=== PATIENT | female | born 2000 | race Caucasian/White ===

== ENCOUNTER 2025-08-05 09:41 | Emergency (ER) | payer OTHER ==
[2025-08-05 10:44] LABS: Glucose, Urine (Dipstick) Normal (Negative); Leukocyte 100 (Negative); Protein, Urine (Dipstick) 15 mg/dl (Neg-Trace); Specific Gravity, Urine 1.025 (1.005-1.030)
[2025-08-05 10:49] LABS: #Basophils 0.05 10x3/uL (0.0-0.2); #Eosinophils 0.08 10x3/uL (0.0-0.5); #Monocytes 0.43 10x3/uL (0.0-1.1); #Neutrophils 5.13 10x3/uL (1.5-8.4); %Basophils 0.7 % (0.0-2.0); %Eosinophils 1.0 % (0.0-6.0); %Lymphocytes 25.4 % (18.0-47.0); %Monocytes 5.6 % (0.0-10.0); %Neutrophils 66.9 % (40.0-75.0); Hematocrit 41.3 % (34.9-44.5); Hemoglobin 13.8 g/dL (12.0-15.5); Mean Corpuscular Hemoglobin 28.2 pg (27.0-33.0); Mean Corpuscular Volume 84.5 fL (81.6-98.3); Platelet Count 243 10x3/uL (150-450); Red Blood Cell (RBC) Count 4.89 10x6/uL (3.90-5.03); White Blood Cell (WBC) Count 7.67 10x3/uL (3.5-10.5)
[2025-08-05 10:57] LABS: CAUTI Indications for Culture Pelvic or flank pain
[2025-08-05 10:58] LABS: Bacteria/HPF 4+ HPF (None Seen); Urine Culture Reflex No No
[2025-08-05 11:08] LABS: ALT (SGPT) 14 U/L (Less than 34); AST (SGOT) 22 U/L (11-34); Albumin 4.5 g/dL (3.1-4.5); Alkaline Phosphatase 36 U/L (40-110); Anion Gap 12 mmol/L (10-20); BUN (Urea Nitrogen) 13 mg/dL (7.0-18.7); Bilirubin, Total 0.6 mg/dL (0.3-1.2); Calc. Creatinine Clearance 0 mL/min (70-130); Calcium 9.2 mg/dL (7.8-10.44); Carbon Dioxide 21 mmol/L (22-29); Chloride 109 mmol/L (98-107); Globulin 2.4 g/dL (2.4-3.5); Glucose 97 mg/dL (70-105); Potassium 3.9 mmol/L (3.5-5.1); Sodium 138 mmol/L (136-145)
== END 2025-08-05 11:50 | disposition home or self-care (01) ==
LOC: CSHERS 09:41
DX: O20.0 Threatened abortion (principal); O20.8 Other hemorrhage in early pregnancy; Z3A.01 Less than 8 weeks gestation of pregnancy; Z87.891 Personal history of nicotine dependence
CPT/HCPCS: 36415; 76856; 80053; 81001; 84702; 85025; 86900; 86901

== ENCOUNTER 2025-08-08 08:08 | Emergency (ER) | payer OTHER ==
[2025-08-08 09:28] LABS: Glucose, Urine (Dipstick) Normal (Negative); Leukocyte 25 (Negative); Protein, Urine (Dipstick) Negative (Neg-Trace); Specific Gravity, Urine 1.020 (1.005-1.030)
[2025-08-08 09:46] LABS: Bacteria/HPF 2+ HPF (None Seen); CAUTI Indications for Culture Pregnancy; RBC/HPF 0-3 HPF (0-3)
[2025-08-08 09:48] LABS: Urine Culture Reflex Yes Yes
[2025-08-08 09:56] LABS: #Basophils 0.04 10x3/uL (0.0-0.2); #Eosinophils 0.09 10x3/uL (0.0-0.5); #Monocytes 0.47 10x3/uL (0.0-1.1); #Neutrophils 5.93 10x3/uL (1.5-8.4); %Basophils 0.5 % (0.0-2.0); %Eosinophils 1.1 % (0.0-6.0); %Lymphocytes 20.8 % (18.0-47.0); %Monocytes 5.7 % (0.0-10.0); %Neutrophils 71.7 % (40.0-75.0); Hematocrit 40.7 % (34.9-44.5); Hemoglobin 13.9 g/dL (12.0-15.5); Mean Corpuscular Hemoglobin 28.7 pg (27.0-33.0); Mean Corpuscular Volume 84.1 fL (81.6-98.3); Platelet Count 241 10x3/uL (150-450); Red Blood Cell (RBC) Count 4.84 10x6/uL (3.90-5.03); White Blood Cell (WBC) Count 8.27 10x3/uL (3.5-10.5)
== END 2025-08-08 11:40 | disposition home or self-care (01) ==
LOC: CSHERS 08:08
DX: O20.0 Threatened abortion (principal); O23.41 Unspecified infection of urinary tract in pregnancy, first trimester; N39.0 Urinary tract infection, site not specified; O99.891 Other specified diseases and conditions complicating pregnancy; R10.30 Lower abdominal pain, unspecified; O36.4XX0 Maternal care for intrauterine death, not applicable or unspecified; O99.331 Smoking (tobacco) complicating pregnancy, first trimester; F17.290 Nicotine dependence, other tobacco product, uncomplicated; Z3A.01 Less than 8 weeks gestation of pregnancy
CPT/HCPCS: 76856; 81001; 84702; 85025; 87086